=== PATIENT | male | born 1950 | race Asian ===

== ENCOUNTER 2021-04-24 07:15 | Inpatient (IN) | payer MEDICARE, MEDICAID ==
[~2021-04-24] VITALS: Ht 170.2 cm; Wt 90.3 kg
--- NOTE | 2021-04-24 10:53 | NUR ---
called the phone no listed on the pt demographic data ,left message ,still waiting for the translation,notified vandana hunter.
--- NOTE | 2021-04-24 11:00 | NUR ---
spoke to pt son and stated that his younger brother is coming to the er for translation,lab at bedside ,pt asking for water ,informed he has to stay npo as we may have to run few test,pt verbalized understanding ,pt able to understand little bit of arabic.
[2021-04-24] MEDS ORDERED: normal saline 1000ML IV soln IVB ONE ×2 (11:05→11:40)
[2021-04-24 11:24] LABS: BASOPHILS % (AUTO) 0.3 % (0-1); EOSINOPHILS % (AUTO) 0.1 % (0-6); HEMATOCRIT 36.5 % (42.0-52.0); HEMOGLOBIN 11.9 g/dl (14.0-17.9); LYMPHOCYTES # (AUTO) 2.4 X10'3 (1.1-4.8); MEAN CORPUSCULAR HEMOGLOBIN 30.5 PG (27.0-31.0); MEAN CORPUSCULAR HGB CONC 32.6 g/dL (33.0-36.5); MEAN CORPUSCULAR VOLUME 93.5 FL (78-98); MEAN PLATELET VOLUME 8.7 FL (7.4-10.4); MONOCYTES # (AUTO) 0.5 X10'3 (0-0.9); MONOCYTES % (AUTO) 3.7 % (2-12); NEUTROPHILS % (AUTO) 78.9 % (42-75); PLATELET COUNT 231 X10'3 (140-440); RED CELL DISTRIBUTION WIDTH 15.1 % (11.5-14.5); WHITE BLOOD COUNT 13.9 X10'3 (4.5-11.0)
--- NOTE | 2021-04-24 11:30 | NUR ---
ciara hunter pt is tahypneic ,seems to be in lot of pain .does not look okay as per pa he will reassess the pt .
--- NOTE | 2021-04-24 11:45 | NUR ---
spoke to pt granddaughter able to get some information informe dthat pt has ate wild bittermelon and since then he is c/o cramping abd pain with diarrhea.
[2021-04-24 11:49] LABS: ALANINE AMINOTRANSFERASE 25 U/L (12-78); ALBUMIN 3.1 G/DL (3.4-5.0); ALBUMIN/GLOBULIN RATIO 0.9 (1.1-1.5); ALKALINE PHOSPHATASE 93 IU/L (46-116); ANION GAP 26 (8-16); ASPARTATE AMINO TRANSFERASE 20 U/L (10-37); BILIRUBIN,TOTAL 0.5 MG/DL (0.1-1.0); BLOOD UREA NITROGEN 81 MG/DL (7-18); CALCIUM 8.2 MG/DL (8.5-10.1); CHLORIDE 103 MMOL/L (99-107); CREATININE 2.25 MG/DL (0.60-1.10); GLUCOSE 241 MG/DL (70-104); LIPASE 98 U/L (73-393); SODIUM 142 MMOL/L (135-145); TOTAL PROTEIN 6.6 G/DL (6.4-8.2); eGFR 29 ML/MIN
[2021-04-24 11:50] LABS: POTASSIUM 4.2 MMOL/L (3.5-5.1)
--- NOTE | 2021-04-24 11:52 | NUR ---
pt has unwitness ground level fall ,pt clenched up arms stiff for few second ,no injuries noted notified the vandana hunter.
[2021-04-24 11:53] LABS: TOTAL CARBON DIOXIDE 13.5 MMOL/L (24-32)
[2021-04-24] MEDS ORDERED: fentaNYL/PF 50MCG/1 ML 2ML syringe IV ONE ×2 (11:55→12:50)
--- NOTE | 2021-04-24 12:13 | NUR ---
grand daughter ,provider and zahraa speaking medical personal at bedside.lab drawing blood .
--- NOTE | 2021-04-24 12:34 | NUR ---
called posion control at [phone] spoke to jakub informed that pt has taken simona plant as told by son at the bedside as per posion control simona does not contain any toxin josemanuel do supportive care ,pt will have gi irritation symp. previously pt granddaughter stated that pt has taken wild bittermelon and spoke to jakub from position control as per jakub pt will have gi symp abd pain n/v/d ,hpypoglycemia .pt then informed that pt son is here and said he ingested simona instead of wild bitter melon .
[2021-04-24] MEDS ORDERED: piperacillin/tazo 3.375gm/50ml 50 ML IV ONE (13:15)
[2021-04-24] MEDS ORDERED: vancomycin/NS 1 GM ADD-VANTAGE 250 ML IV ONE (13:15)
[2021-04-24 13:17] LABS: ABG BASE EXCESS -19.5 mmol/L (-2.0-2.0); ABG HCO3 7.5 mmol/L (22.0-26.0); ABG OXYGEN SATURATION 95.1 % (94-97); ABG PCO2 (T) 21.1 mmHg (35.0-48.0); ABG PO2 (T) 93.6 mmHg (75.0-100.0); ALLEN'S TEST POSITIVE; FCOHb 0.3 % (0.0-3.9); FMetHb 0.2 % (0.0-1.5); FO2Hb 94.6 % (94-97); PATIENT TEMPERATURE 36.4; TOTAL HEMOGLOBIN 10.8 G/dl (14.0-18.0)
--- NOTE | 2021-04-24 13:40 | NUR ---
grand daughter [phone] abundio. frantz son [phone] call for ques or concern.
[2021-04-24] MEDS: sodium chloride 0.45% 1,000 ML IV SCH ×5 (14:40→23:17)
[2021-04-24] MEDS ORDERED: pantoprazole 40 MG vial IV SCH (14:40)
[2021-04-24] MEDS ORDERED: magnesium hydroxide 30ml (MOM) UD suspension PO PRN (14:40)
[2021-04-24] MEDS ORDERED: iohexol 350MG/ML 100ml bottle IV ONE (14:42)
[2021-04-24 16:38] LABS: AMYLASE 35 U/L (25-115); PHOSPHORUS 8.4 MG/DL (2.3-4.5)
[2021-04-24] MEDS ORDERED: NO HOME MEDS (16:47)
--- NOTE | 2021-04-24 17:00 | NUR ---
dr alvarado at bedside.
[2021-04-24] MEDS: metroNIDAZOLE-Flagyl 500mg/NS 100 ML IV SCH ×2 (17:09→23:17)
--- NOTE | 2021-04-24 17:37 | NUR ---
Patient in room ED 16. I have received report from MOHSEN WINSTON, and had the opportunity to ask questions and assume patient care.
[2021-04-24 17:57] LABS: ALANINE AMINOTRANSFERASE 25 U/L (12-78); ALBUMIN 2.7 G/DL (3.4-5.0); ALKALINE PHOSPHATASE 84 IU/L (46-116); ANION GAP 23 (8-16); ASPARTATE AMINO TRANSFERASE 26 U/L (10-37); BILIRUBIN,TOTAL 0.6 MG/DL (0.1-1.0); BLOOD UREA NITROGEN 85 MG/DL (7-18); BUN/CREATININE RATIO 31.8 (5.4-32.0); CALCIUM 7.3 MG/DL (8.5-10.1); CHLORIDE 108 MMOL/L (99-107); CREATINE KINASE 127 U/L (39-308); CREATININE 2.67 MG/DL (0.60-1.10); GLUCOSE 143 MG/DL (70-104); POTASSIUM 4.3 MMOL/L (3.5-5.1); SODIUM 144 MMOL/L (135-145); TOTAL PROTEIN 5.5 G/DL (6.4-8.2); eGFR 24 ML/MIN
[2021-04-24 18:03] LABS: TOTAL CARBON DIOXIDE 13.5 MMOL/L (24-32)
[2021-04-24] MEDS ORDERED: sodium bicarbonate (8.4%) inj. 50 MEQ in dextrose 5%-water 1,000 ML IV SCH (18:20)
[2021-04-24 18:30] LABS: D-DIMER 1.79 MG/L FEU (0-0.50)
[2021-04-24] MEDS: piperacillin/tazo 3.375gm/50ml 50 ML IV SCH ×2 (18:35→23:18)
--- NOTE | 2021-04-24 18:47 | NUR ---
md MEJIA notified of critical co2 13.5 order for bicarb 1 amp now and bicarbonate gtt.
--- NOTE | 2021-04-24 18:47 | NUR ---
Problems reprioritized. Patient report given, questions answered & plan of care reviewed with MOHSEN FABIAN.
[2021-04-24 19:13] VITALS: BP 123/71
[2021-04-24] MEDS: sodium bicarbonate (8.4%) inj. 150 MEQ in dextrose 5%-water 1,000 ML IV SCH ×2 (19:15→19:42)
[2021-04-24 20:00] VITALS: BP 123/71
[2021-04-24] MEDS ORDERED: heparin, porcine 5000 units/ml vial SQ SCH (20:00)
--- NOTE | 2021-04-24 20:00 | NUR ---
Md Ness tele med consult with pt ordered bipap Rt placed pt on bipap for 2 minuted pt refused, patient complained of pain Md ordered pain medication, ABG rescheduled to hr after receiving bicarb amp.
[2021-04-24] MEDS ORDERED: sodium bicarbonate (8.4%) 1 mEq/ml syringe IV STA (20:11)
[2021-04-24 21:00] VITALS: BP 128/60
--- NOTE | 2021-04-24 21:07 | NUR ---
Patient wore bipap for about 2 minutes and then removed the mask. Unit placed on standby Addendum: 04/24/21 at 2114 by Rodrick Galvan RT Amended: Links added.
[2021-04-24] MEDS: morphine 2 MG/ML inj. syringe IV PRN (21:32)
[2021-04-24 22:00] VITALS: BP 115/47
[2021-04-24 22:25] LABS: ABG BASE EXCESS -8.6 mmol/L (-2.0-2.0); ABG HCO3 15.5 mmol/L (22.0-26.0); ABG OXYGEN SATURATION 96.3 % (94-97); ABG PCO2 (T) 26.4 mmHg (35.0-48.0); ALLEN'S TEST POSITIVE; FCOHb 0.3 % (0.0-3.9); FLOW 1 L/min; FMetHb 0.1 % (0.0-1.5); FO2Hb 95.9 % (94-97); PATIENT TEMPERATURE 36.3
[2021-04-24 23:00] VITALS: BP 110/48
[2021-04-25] VITALS (39 sets, daily range): BP systolic 103–167; BP diastolic 42–82
--- NOTE | 2021-04-25 00:31 | NUR ---
Md called about ABG results and notified of pt having blood stools, MD decreased bicarb Gtt to 50 ml/hr. will reassess H7H in morning labs
--- NOTE | 2021-04-25 00:33 | NUR ---
notified of pts refusal of bipap no new changes or orders will continue to monitor
[2021-04-25] MEDS: vancomycin 125mg/5ml ORAL solution 5ml UD bottle PO SCH ×2 (01:38→08:34)
[2021-04-25] MEDS: morphine 2 MG/ML inj. syringe IV PRN ×4 (01:39→23:56)
[2021-04-25] MEDS: sodium chloride 0.45% 1,000 ML IV SCH ×3 (03:11→10:02)
[2021-04-25 03:22] LABS: BASOPHILS % (AUTO) 0.1 % (0-1); EOSINOPHILS % (AUTO) 0 % (0-6); HEMATOCRIT 24.1 % (42.0-52.0); HEMOGLOBIN 8.2 g/dl (14.0-17.9); LYMPHOCYTES # (AUTO) 1.5 X10'3 (1.1-4.8); MEAN CORPUSCULAR HEMOGLOBIN 30.5 PG (27.0-31.0); MEAN CORPUSCULAR VOLUME 89.5 FL (78-98); MEAN PLATELET VOLUME 9.1 FL (7.4-10.4); MONOCYTES # (AUTO) 0.9 X10'3 (0-0.9); MONOCYTES % (AUTO) 9.5 % (2-12); NEUTROPHILS # (AUTO) 7.1 X10'3 (1.8-7.7); NEUTROPHILS % (AUTO) 74.4 % (42-75); PLATELET COUNT 132 X10'3 (140-440); RED BLOOD COUNT 2.69 X10'6 (4.70-6.10); RED CELL DISTRIBUTION WIDTH 14.8 % (11.5-14.5); WHITE BLOOD COUNT 9.6 X10'3 (4.5-11.0)
[2021-04-25 03:37] LABS: PARTIAL THROMBOPLASTIN TIME 29 SECONDS (22-32)
--- NOTE | 2021-04-25 04:00 | NUR ---
Md did morning rounds notified of bloody stool and H&H lab values decreasing and lactic acid remaining the same. No new orders at this time ill continue to monitor recheck labs
[2021-04-25 04:01] LABS: ALANINE AMINOTRANSFERASE 22 U/L (12-78); ALBUMIN 2.5 G/DL (3.4-5.0); ALBUMIN/GLOBULIN RATIO 0.9 (1.1-1.5); ALKALINE PHOSPHATASE 70 IU/L (46-116); ANION GAP 18 (8-16); ASPARTATE AMINO TRANSFERASE 28 U/L (10-37); BILIRUBIN,TOTAL 0.7 MG/DL (0.1-1.0); BLOOD UREA NITROGEN 78 MG/DL (7-18); BUN/CREATININE RATIO 34.1 (5.4-32.0); CALCIUM 7.2 MG/DL (8.5-10.1); CHLORIDE 104 MMOL/L (99-107); CREATININE 2.29 MG/DL (0.60-1.10); GLUCOSE 152 MG/DL (70-104); MAGNESIUM 1.7 MG/DL (1.5-2.4); PHOSPHORUS 4.6 MG/DL (2.3-4.5); POTASSIUM 3.6 MMOL/L (3.5-5.1); SODIUM 140 MMOL/L (135-145); TOTAL CARBON DIOXIDE 17.6 MMOL/L (24-32); TOTAL PROTEIN 5.2 G/DL (6.4-8.2); eGFR 28 ML/MIN
[2021-04-25 04:23] LABS: BANDS% (MANUAL) 23 % (0-10); LYMPHOCYTES % (MANUAL) 19 % (21-51); METAMYLEOCYTES% (MANUAL) 6 % (0-0); MONOCYTES % (MANUAL) 5 % (2-12); NEUTROPHILS % (MANUAL) 45 % (42-75); TOTAL CELLS COUNTED 100
[2021-04-25 04:24] LABS: MYELOCYTES % (MANUAL) 2 % (0-0); PLATELET ESTIMATE DECREASED
--- NOTE | 2021-04-25 05:36 | NUR ---
would like to hold heparin SQ for low H&H and bloody stools
--- NOTE | 2021-04-25 06:00 | NUR ---
Patient in room ICU 2044. I have received report from ENDER CONNOLLY and had the opportunity to ask questions and assume patient care.
--- NOTE | 2021-04-25 06:20 | NUR ---
Problems reprioritized. Patient report given, questions answered & plan of care reviewed with MOHSEN Mcmullen.
[2021-04-25] MEDS: pantoprazole 40MG/NS 100ML BAG 100 ML IV SCH ×4 (07:09→20:37)
[2021-04-25] MEDS: metroNIDAZOLE-Flagyl 500mg/NS 100 ML IV SCH ×3 (08:35→23:04)
[2021-04-25] MEDS: piperacillin/tazo 3.375gm/50ml 50 ML IV SCH (08:35)
[2021-04-25 08:51] LABS: CLARITY,URINE CLOUDY (Clear); COLOR,URINE YELLOW (Yellow); GLUCOSE, URINE NEGATIVE (Neg); KETONES,URINE NEGATIVE (Neg); LEUKOCYTE ESTERASE ,URINE NEGATIVE (Neg); NITRITES, URINE NEGATIVE (Neg); OCCULT BLOOD,URINE MODERATE (Neg); PH,URINE 5.5 (4.8-8.0); PROTEIN,URINE TRACE mg/dl (Neg); UROBILINOGEN,URINE 0.2 E.U/dL (0.2-1.0)
[2021-04-25 08:52] LABS: UA COLLECTION TYPE CLN CATCH MIDSTREAM
[2021-04-25 08:55] LABS: SQUAMOUS EPITHELIAL CELL,UR FEW /LPF (FEW)
[2021-04-25 08:59] LABS: BACTERIA,URINE FEW /HPF (Neg); URIC ACID CRYSTALS 2+ /HPF (NEGATIVE); WBC,URINE 0-4 /HPF (0-4)
--- NOTE | 2021-04-25 11:02 | NUR ---
DM Consult: Pt hx DM A1C pending this admit. Pt admit w/ suspected infectious enterocolitis. Per son at rounds; pt and family consumed Man[place] (PassHat) found on [facility] which is toxic and inedible though and other son's diarrhea not as bad as patient's. Addendum: 04/25/21 at [address] Amended: Links added.
[2021-04-25] MEDS: [UNRECOGNIZED DRUG - OTHER] IV SCH ×2 (11:20→22:10)
[2021-04-25] MEDS: SODIUM BICARBONATE IV SCH ×2 (11:20→22:10)
[2021-04-25] MEDS: POTASSIUM CL IV SCH ×2 (11:20→22:10)
[2021-04-25 12:35] LABS: BASOPHILS % (AUTO) 0.1 % (0-1); EOSINOPHILS % (AUTO) 0 % (0-6); HEMOGLOBIN 7.5 g/dl (14.0-17.9); LYMPHOCYTES # (AUTO) 1.2 X10'3 (1.1-4.8); LYMPHOCYTES % (AUTO) 12.9 % (21-51); MEAN CORPUSCULAR HEMOGLOBIN 30.8 PG (27.0-31.0); MONOCYTES # (AUTO) 0.8 X10'3 (0-0.9); MONOCYTES % (AUTO) 8.8 % (2-12); NEUTROPHILS # (AUTO) 7.2 X10'3 (1.8-7.7); NEUTROPHILS % (AUTO) 78.2 % (42-75); PLATELET COUNT 120 X10'3 (140-440); RED BLOOD COUNT 2.42 X10'6 (4.70-6.10); RED CELL DISTRIBUTION WIDTH 14.3 % (11.5-14.5); WHITE BLOOD COUNT 9.2 X10'3 (4.5-11.0)
[2021-04-25] MEDS: ciprofloxacin 250mg tablet PO SCH ×2 (12:40→20:37)
[2021-04-25 12:55] LABS: HEMATOCRIT 21.3 % (42.0-52.0)
--- NOTE | 2021-04-25 15:28 | NUR ---
F/u for DM consult: Patient's A1c is 5.6%, DM education not warranted at this time. Will continue to follow. Addendum: 04/25/21 at [address] Amended: Links added.
--- NOTE | 2021-04-25 16:28 | NUR ---
PATIENT REFUSING BLOOD AT THIS POINT DUE TO LATTER DAY BELIEFS
[2021-04-25 17:30] LABS: HEMOGLOBIN 7.4 g/dl (14.0-17.9); MEAN CORPUSCULAR HEMOGLOBIN 31.3 PG (27.0-31.0); MEAN CORPUSCULAR HGB CONC 35.1 g/dL (33.0-36.5); MEAN CORPUSCULAR VOLUME 89.3 FL (78-98); MEAN PLATELET VOLUME 9.2 FL (7.4-10.4); PLATELET COUNT 123 X10'3 (140-440); RED BLOOD COUNT 2.36 X10'6 (4.70-6.10); RED CELL DISTRIBUTION WIDTH 14.4 % (11.5-14.5); WHITE BLOOD COUNT 8.4 X10'3 (4.5-11.0)
--- NOTE | 2021-04-25 18:00 | NUR ---
Family at bedside pt and family consented to receiving blood explained we will recheck and if lab values are low pt may need another transfusion family and pt agreed and signed consent
--- NOTE | 2021-04-25 18:12 | NUR ---
Patient in room ICU 2044. I have received report from MOHSEN Penaloza and had the opportunity to ask questions and assume patient care.
[2021-04-25] MEDS: lactobacillus rhamnosus 10,000 MMU CELLS/CAPSULE PO SCH (20:37)
[2021-04-25] MEDS ORDERED: PEG 3350/Na sulf,bicarb,Cl/KCl oral sol 4 liter bottle PO ONE (22:05)
--- NOTE | 2021-04-25 22:10 | NUR ---
Called [employer] tech due to Us of abd not completed during day shift, Us tech stated pt needed to be NPO pt is receiving bowel prep at this time and US will be performed at 0600 am 04/26/2021.
[2021-04-25 22:38] LABS: MEAN CORPUSCULAR HEMOGLOBIN 30.2 PG (27.0-31.0); MEAN CORPUSCULAR HGB CONC 34.9 g/dL (33.0-36.5); MEAN CORPUSCULAR VOLUME 86.7 FL (78-98); MEAN PLATELET VOLUME 8.6 FL (7.4-10.4); PLATELET COUNT 113 X10'3 (140-440); RED BLOOD COUNT 2.65 X10'6 (4.70-6.10); RED CELL DISTRIBUTION WIDTH 14.3 % (11.5-14.5); WHITE BLOOD COUNT 7.2 X10'3 (4.5-11.0)
[2021-04-26] VITALS (39 sets, daily range): BP systolic 111–189; BP diastolic 37–97
[2021-04-26] MEDS: pantoprazole 40MG/NS 100ML BAG 100 ML IV SCH ×5 (00:06→20:23)
[2021-04-26 02:48] LABS: BASOPHILS % (AUTO) 0.2 % (0-1); EOSINOPHILS % (AUTO) 0.1 % (0-6); HEMOGLOBIN 7.6 g/dl (14.0-17.9); LYMPHOCYTES # (AUTO) 1.1 X10'3 (1.1-4.8); LYMPHOCYTES % (AUTO) 17.2 % (21-51); MEAN CORPUSCULAR HEMOGLOBIN 30.1 PG (27.0-31.0); MEAN CORPUSCULAR HGB CONC 34.8 g/dL (33.0-36.5); MEAN CORPUSCULAR VOLUME 86.5 FL (78-98); MEAN PLATELET VOLUME 8.7 FL (7.4-10.4); MONOCYTES # (AUTO) 0.5 X10'3 (0-0.9); MONOCYTES % (AUTO) 7.5 % (2-12); NEUTROPHILS # (AUTO) 4.9 X10'3 (1.8-7.7); PLATELET COUNT 107 X10'3 (140-440); RED BLOOD COUNT 2.53 X10'6 (4.70-6.10); RED CELL DISTRIBUTION WIDTH 14.8 % (11.5-14.5); WHITE BLOOD COUNT 6.5 X10'3 (4.5-11.0)
[2021-04-26 03:01] LABS: HEMATOCRIT 21.9 % (42.0-52.0)
[2021-04-26 03:03] LABS: PARTIAL THROMBOPLASTIN TIME 38 SECONDS (22-32)
--- NOTE | 2021-04-26 03:07 | NUR ---
MD Arriaga notified of critical HG 7.6 and HCT 21.9 telephone order to give one unit packed rbc and repeat H&H.
[2021-04-26 03:17] LABS: ALANINE AMINOTRANSFERASE 18 U/L (12-78); ALBUMIN 2.1 G/DL (3.4-5.0); ALBUMIN/GLOBULIN RATIO 0.7 (1.1-1.5); ALKALINE PHOSPHATASE 54 IU/L (46-116); ANION GAP 8 (8-16); ASPARTATE AMINO TRANSFERASE 27 U/L (10-37); BILIRUBIN,TOTAL 0.8 MG/DL (0.1-1.0); BLOOD UREA NITROGEN 25 MG/DL (7-18); BUN/CREATININE RATIO 29.1 (5.4-32.0); CALCIUM 7.3 MG/DL (8.5-10.1); CHLORIDE 109 MMOL/L (99-107); CREATININE 0.86 MG/DL (0.60-1.10); GLUCOSE 123 MG/DL (70-104); PHOSPHORUS 1.6 MG/DL (2.3-4.5); POTASSIUM 3.6 MMOL/L (3.5-5.1); SODIUM 143 MMOL/L (135-145); TOTAL CARBON DIOXIDE 26.2 MMOL/L (24-32); TOTAL PROTEIN 5.1 G/DL (6.4-8.2); eGFR 88 ML/MIN
[2021-04-26] MEDS ORDERED: calcium chloride 100 MG/1 ML inj IV ONE (05:10)
[2021-04-26] MEDS ORDERED: potassium phosphate inj 30 MMOL in normal saline 500ml IV soln 500 ML IV ONE (05:10)
--- NOTE | 2021-04-26 06:31 | NUR ---
Problems reprioritized. Patient report given, questions answered & plan of care reviewed with MOHSEN Lofton.
--- NOTE | 2021-04-26 06:32 | NUR ---
Patient in room ICU 2044. I have received report from MOHSEN Paredes and had the opportunity to ask questions and assume patient care.
[2021-04-26] MEDS: metroNIDAZOLE-Flagyl 500mg/NS 100 ML IV SCH (07:26)
[2021-04-26] MEDS: lactobacillus rhamnosus 10,000 MMU CELLS/CAPSULE PO SCH ×2 (07:28→20:22)
[2021-04-26] MEDS: ciprofloxacin 250mg tablet PO SCH ×3 (07:28→20:22)
[2021-04-26] MEDS: SODIUM BICARBONATE IV SCH (08:44)
[2021-04-26] MEDS: POTASSIUM CL IV SCH (08:44)
[2021-04-26] MEDS: [UNRECOGNIZED DRUG - OTHER] IV SCH (08:44)
[2021-04-26 09:14] LABS: C DIFF ANTIGEN NEGATIVE (NEGATIVE); C DIFF SPECIMEN=DIARRHEA? ACCEPTABLE; C DIFFICILE TOXINS A&B NEGATIVE (Neg)
--- NOTE | 2021-04-26 14:09 | NUR ---
Daughter at beside and able to translate for nurse states pt is depressed c/o of sl abd pain and no appetite" States golyty made him sick 1 unit of PRBC started as ordered VSS Sl htn Daughter states pt does not take any med
[2021-04-26] MEDS ORDERED: labetalol 100mg tablet PO PRN (14:20)
[2021-04-26] MEDS ORDERED: ondansetron/PF 4mg/2ml inj IV PRN (14:35)
--- NOTE | 2021-04-26 15:07 | NUR ---
pt zoya blood transfusion without signs of symptoms of reaction [employer] Researcher phone used to explain to pt giving pt something for nausea and some antibiotics Explained need to get golyty down so they could do scope in morning Pt had no questions VSS
[2021-04-26] MEDS: metroNIDAZOLE 500mg tablet PO SCH ×2 (15:10→17:30)
[2021-04-26 18:17] LABS: HEMATOCRIT 26.9 % (42.0-52.0); HEMOGLOBIN 9.2 g/dl (14.0-17.9); MEAN CORPUSCULAR HEMOGLOBIN 30.2 PG (27.0-31.0); MEAN CORPUSCULAR HGB CONC 34.4 g/dL (33.0-36.5); MEAN CORPUSCULAR VOLUME 87.8 FL (78-98); MEAN PLATELET VOLUME 8.8 FL (7.4-10.4); PLATELET COUNT 105 X10'3 (140-440); RED BLOOD COUNT 3.06 X10'6 (4.70-6.10); WHITE BLOOD COUNT 6.6 X10'3 (4.5-11.0)
--- NOTE | 2021-04-26 18:27 | NUR ---
Patient in room ICU 2044. I have received report from MOHSEN Lofton and had the opportunity to ask questions and assume patient care.
--- NOTE | 2021-04-26 18:30 | NUR ---
Problems reprioritized. Patient report given, questions answered & plan of care reviewed with MOHSEN Ellis.
[2021-04-26 23:55] LABS: HEMOGLOBIN 9.5 g/dl (14.0-17.9); MEAN CORPUSCULAR HEMOGLOBIN 29.8 PG (27.0-31.0); MEAN CORPUSCULAR HGB CONC 34.1 g/dL (33.0-36.5); MEAN CORPUSCULAR VOLUME 87.4 FL (78-98); MEAN PLATELET VOLUME 8.3 FL (7.4-10.4); PLATELET COUNT 113 X10'3 (140-440); RED BLOOD COUNT 3.21 X10'6 (4.70-6.10); RED CELL DISTRIBUTION WIDTH 15.2 % (11.5-14.5); WHITE BLOOD COUNT 7.1 X10'3 (4.5-11.0)
[2021-04-27] VITALS (23 sets, daily range): BP systolic 131–188; BP diastolic 43–86
[2021-04-27] MEDS: pantoprazole 40MG/NS 100ML BAG 100 ML IV SCH ×5 (02:06→20:31)
[2021-04-27 06:10] LABS: BASOPHILS % (AUTO) 0.3 % (0-1); EOSINOPHILS % (AUTO) 0.3 % (0-6); HEMATOCRIT 25.8 % (42.0-52.0); HEMOGLOBIN 8.9 g/dl (14.0-17.9); LYMPHOCYTES # (AUTO) 1.4 X10'3 (1.1-4.8); LYMPHOCYTES % (AUTO) 21.5 % (21-51); MEAN CORPUSCULAR HEMOGLOBIN 29.9 PG (27.0-31.0); MEAN CORPUSCULAR HGB CONC 34.4 g/dL (33.0-36.5); MEAN CORPUSCULAR VOLUME 86.7 FL (78-98); MEAN PLATELET VOLUME 8.5 FL (7.4-10.4); MONOCYTES # (AUTO) 0.5 X10'3 (0-0.9); MONOCYTES % (AUTO) 7.9 % (2-12); NEUTROPHILS # (AUTO) 4.6 X10'3 (1.8-7.7); PLATELET COUNT 110 X10'3 (140-440); RED BLOOD COUNT 2.98 X10'6 (4.70-6.10); RED CELL DISTRIBUTION WIDTH 15.8 % (11.5-14.5); WHITE BLOOD COUNT 6.5 X10'3 (4.5-11.0)
[2021-04-27 06:22] LABS: PARTIAL THROMBOPLASTIN TIME 32 SECONDS (22-32)
--- NOTE | 2021-04-27 06:29 | NUR ---
Patient in room ICU 2044. I have received report from Rhonda CONNOLLY at bedside and had the opportunity to ask questions and assume patient care.
--- NOTE | 2021-04-27 06:31 | NUR ---
Problems reprioritized. Patient report given, questions answered & plan of care reviewed with MOHSEN Carlos.
[2021-04-27 06:35] LABS: ALANINE AMINOTRANSFERASE 24 U/L (12-78); ALBUMIN 2.1 G/DL (3.4-5.0); ALBUMIN/GLOBULIN RATIO 0.7 (1.1-1.5); ALKALINE PHOSPHATASE 86 IU/L (46-116); ANION GAP 7 (8-16); ASPARTATE AMINO TRANSFERASE 27 U/L (10-37); BILIRUBIN,TOTAL 0.6 MG/DL (0.1-1.0); BLOOD UREA NITROGEN 17 MG/DL (7-18); BUN/CREATININE RATIO 21.3 (5.4-32.0); CALCIUM 7.7 MG/DL (8.5-10.1); CHLORIDE 113 MMOL/L (99-107); GLUCOSE 94 MG/DL (70-104); PHOSPHORUS 2.8 MG/DL (2.3-4.5); POTASSIUM 3.2 MMOL/L (3.5-5.1); SODIUM 147 MMOL/L (135-145); TOTAL CARBON DIOXIDE 27.2 MMOL/L (24-32); TOTAL PROTEIN 5.2 G/DL (6.4-8.2); eGFR > 90 ML/MIN
[2021-04-27] MEDS: metroNIDAZOLE 500mg tablet PO SCH ×3 (07:12→17:20)
[2021-04-27] MEDS: lactobacillus rhamnosus 10,000 MMU CELLS/CAPSULE PO SCH ×2 (07:12→20:31)
[2021-04-27] MEDS: ciprofloxacin 250mg tablet PO SCH ×3 (07:12→20:31)
[2021-04-27] MEDS ORDERED: labetalol 20mg/4ml (5mg/ml) syringe IV PRN (08:20)
--- NOTE | 2021-04-27 08:20 | NUR ---
spoke with Dr. Torres on the phone regarding B/P 188/ currently NPO for EGD and colonoscopy with Dr. Zarco this morning, currently has Labetalol 100mg po medication order to give with meals. Dr. Torres gave order for Labetalol 20mg IV [id number] for SBP >160.
[2021-04-27] MEDS ORDERED: MIDAZolam 1 MG/ML 5ML VIAL ONE (08:25)
[2021-04-27] MEDS ORDERED: fentaNYL/PF 50MCG/1 ML 2ML syringe ONE (08:25)
[2021-04-27] MEDS ORDERED: LIDOcaine Viscous 15ml cup ONE (08:26)
[2021-04-27] MEDS ORDERED: potassium Cl 20 mEq SR tablet PO PRN (11:35)
[2021-04-27] MEDS: K, MAG and/or Phos replacement - Verify level? MC SCH (11:36)
[2021-04-27] MEDS: potassium Cl 20 mEq SR tablet PO PRN ×3 (12:37→21:20)
[2021-04-27] MEDS: morphine 2 MG/ML inj. syringe IV PRN ×2 (12:38→20:32)
[2021-04-27 15:31] LABS: HEMATOCRIT 26.7 % (42.0-52.0); HEMOGLOBIN 9.1 g/dl (14.0-17.9); MEAN CORPUSCULAR HEMOGLOBIN 29.6 PG (27.0-31.0); MEAN CORPUSCULAR VOLUME 87.1 FL (78-98); MEAN PLATELET VOLUME 8.9 FL (7.4-10.4); PLATELET COUNT 120 X10'3 (140-440); RED BLOOD COUNT 3.07 X10'6 (4.70-6.10); RED CELL DISTRIBUTION WIDTH 15.1 % (11.5-14.5); WHITE BLOOD COUNT 7.1 X10'3 (4.5-11.0)
--- NOTE | 2021-04-27 16:30 | NUR ---
Called Surgical to give report and was unable to take report. Nurse will call back when able to take patient
--- NOTE | 2021-04-27 17:35 | NUR ---
Called to give report to Ivania Stewart RN, on Surgical, currently unavailable and will call back to receive report.
--- NOTE | 2021-04-27 17:42 | NUR ---
Problems reprioritized. Patient report given, questions answered & plan of care reviewed with Shalonda CONNOLLY .
--- NOTE | 2021-04-27 17:47 | NUR ---
I have received report from MOHSEN Carlos and had the opportunity to ask questions and assume patient care.
--- NOTE | 2021-04-27 17:55 | NUR ---
Pt arrived to surgical floor via wheelchair
--- NOTE | 2021-04-27 18:33 | NUR ---
Problems reprioritized. Patient report given, questions answered & plan of care reviewed with MOHSEN Puckett.
[2021-04-27 23:55] LABS: HEMATOCRIT 28.4 % (42.0-52.0); HEMOGLOBIN 9.6 g/dl (14.0-17.9); MEAN CORPUSCULAR HEMOGLOBIN 29.9 PG (27.0-31.0); MEAN CORPUSCULAR HGB CONC 33.8 g/dL (33.0-36.5); MEAN CORPUSCULAR VOLUME 88.6 FL (78-98); MEAN PLATELET VOLUME 8.3 FL (7.4-10.4); PLATELET COUNT 130 X10'3 (140-440); RED CELL DISTRIBUTION WIDTH 15.1 % (11.5-14.5); WHITE BLOOD COUNT 6.8 X10'3 (4.5-11.0)
[2021-04-28 00:19] VITALS: BP 159/68
[2021-04-28] MEDS: morphine 2 MG/ML inj. syringe IV PRN ×3 (00:45→09:06)
[2021-04-28] MEDS: pantoprazole 40MG/NS 100ML BAG 100 ML IV SCH ×4 (01:35→17:07)
[2021-04-28 06:26] LABS: PARTIAL THROMBOPLASTIN TIME 30 SECONDS (22-32)
[2021-04-28 06:30] VITALS: BP 154/75
[2021-04-28 06:31] LABS: BASOPHILS % (AUTO) 0.3 % (0-1); EOSINOPHILS % (AUTO) 0.5 % (0-6); HEMATOCRIT 28.5 % (42.0-52.0); HEMOGLOBIN 9.8 g/dl (14.0-17.9); LYMPHOCYTES # (AUTO) 1.5 X10'3 (1.1-4.8); LYMPHOCYTES % (AUTO) 20.7 % (21-51); MEAN CORPUSCULAR HEMOGLOBIN 30.1 PG (27.0-31.0); MEAN CORPUSCULAR HGB CONC 34.4 g/dL (33.0-36.5); MEAN CORPUSCULAR VOLUME 87.4 FL (78-98); MEAN PLATELET VOLUME 8.1 FL (7.4-10.4); MONOCYTES # (AUTO) 0.7 X10'3 (0-0.9); MONOCYTES % (AUTO) 9.4 % (2-12); NEUTROPHILS # (AUTO) 5.1 X10'3 (1.8-7.7); NEUTROPHILS % (AUTO) 69.1 % (42-75); PLATELET COUNT 135 X10'3 (140-440); RED BLOOD COUNT 3.26 X10'6 (4.70-6.10); RED CELL DISTRIBUTION WIDTH 15.1 % (11.5-14.5); WHITE BLOOD COUNT 7.4 X10'3 (4.5-11.0)
[2021-04-28 06:34] LABS: ALANINE AMINOTRANSFERASE 20 U/L (12-78); ALBUMIN 2.2 G/DL (3.4-5.0); ALBUMIN/GLOBULIN RATIO 0.8 (1.1-1.5); ALKALINE PHOSPHATASE 57 IU/L (46-116); ANION GAP 6 (8-16); ASPARTATE AMINO TRANSFERASE 20 U/L (10-37); BILIRUBIN,TOTAL 0.5 MG/DL (0.1-1.0); BLOOD UREA NITROGEN 11 MG/DL (7-18); BUN/CREATININE RATIO 13.8 (5.4-32.0); CALCIUM 7.6 MG/DL (8.5-10.1); CHLORIDE 112 MMOL/L (99-107); GLUCOSE 93 MG/DL (70-104); MAGNESIUM 1.9 MG/DL (1.5-2.4); PHOSPHORUS 3.5 MG/DL (2.3-4.5); POTASSIUM 3.3 MMOL/L (3.5-5.1); SODIUM 145 MMOL/L (135-145); TOTAL CARBON DIOXIDE 26.7 MMOL/L (24-32); TOTAL PROTEIN 5.1 G/DL (6.4-8.2); eGFR > 90 ML/MIN
--- NOTE | 2021-04-28 06:40 | NUR ---
Patient in room PRAB[facility] 354. I have received report from MOHSEN Puckett and had the opportunity to ask questions and assume patient care.
[2021-04-28 07:26] LABS: PLATELET ESTIMATE DECREASED; POLYCHROMASIA 1+
[2021-04-28 07:27] LABS: ANISOCYTOSIS 1+
--- NOTE | 2021-04-28 07:42 | NUR ---
Problems reprioritized. Patient report given, questions answered & plan of care reviewed with Bronwyn RN.
[2021-04-28] MEDS: K, MAG and/or Phos replacement - Verify level? MC SCH (07:53)
[2021-04-28] MEDS: metroNIDAZOLE 500mg tablet PO SCH ×3 (09:05→17:07)
[2021-04-28] MEDS: ciprofloxacin 250mg tablet PO SCH ×3 (09:05→20:33)
[2021-04-28] MEDS: lactobacillus rhamnosus 10,000 MMU CELLS/CAPSULE PO SCH ×2 (09:05→20:32)
[2021-04-28] MEDS: potassium Cl 20 mEq SR tablet PO PRN ×3 (09:14→17:07)
--- NOTE | 2021-04-28 10:57 | NUR ---
Initial: Pt presented with c/o abdominal pain, diarrhea, and N/V following PO intake of a wild cucumber called simona and admit for GIB. Pt initially on a full liquid diet documented with 0-25% PO intake, though pt now on a clear liquid diet following EGD and colonoscopy documented with 100% PO intake. Unable to meet estimated nutrient needs on current diet order. Recommend diet advancement to regular as medically indicated. LBM 12, documented with diarrhea though small in size. Pt receiving routine bowel care and received GoLytely for GI prep. Will continue to follow closely and make recommendations as appropriate. Recommendations: 1) Advance to regular diet as medically indicated; CHO controlled diet not indicated given A1c 5.6% and BG levels well controlled throughout LOS 2) Bowel care per rx 3) Weekly scaled weights Addendum: 04/28/21 at [address] Amended: Links added.
[2021-04-28 11:00] VITALS: BP 172/80
[2021-04-28] MEDS: HYDROcodone/acetaminophen 5mg/325mg tablet PO PRN ×3 (11:36→22:57)
[2021-04-28] MEDS: labetalol 100mg tablet PO PRN (12:53)
[2021-04-28 13:50] LABS: HEMATOCRIT 30.3 % (42.0-52.0); HEMOGLOBIN 10.4 g/dl (14.0-17.9); MEAN CORPUSCULAR HEMOGLOBIN 30.4 PG (27.0-31.0); MEAN CORPUSCULAR HGB CONC 34.4 g/dL (33.0-36.5); MEAN CORPUSCULAR VOLUME 88.2 FL (78-98); MEAN PLATELET VOLUME 8.2 FL (7.4-10.4); PLATELET COUNT 145 X10'3 (140-440); RED BLOOD COUNT 3.44 X10'6 (4.70-6.10); RED CELL DISTRIBUTION WIDTH 15.3 % (11.5-14.5); WHITE BLOOD COUNT 7.8 X10'3 (4.5-11.0)
--- NOTE | 2021-04-28 17:45 | NUR ---
Report given to MOHSEN Mera
--- NOTE | 2021-04-28 17:55 | NUR ---
Pt transferred to room 4010B for house convenience.
--- NOTE | 2021-04-28 18:30 | NUR ---
Patient in room ORTHO 4010. I have received report from Samaria CONNOLLY and had the opportunity to ask questions and assume patient care.
[2021-04-28 18:45] VITALS: BP 155/69
--- NOTE | 2021-04-28 19:00 | NUR ---
his eyes are cloudy I asked granddaughter if patient had hx of cataracts and glaucoma, she said not to her knowledge. Addendum: 04/28/21 at 2221 by Holli Sandoval RN Amended: Links added.
[2021-04-28] MEDS: pantoprazole 40mg Tablet.DR PO SCH (20:32)
[2021-04-28 22:00] VITALS: BP 159/70
[2021-04-28] MEDS ORDERED: simethicone 80mg chew tab PO PRN (22:25)
[2021-04-29] MEDS: HYDROcodone/acetaminophen 5mg/325mg tablet PO PRN (03:19)
[2021-04-29 05:56] LABS: BASOPHILS % (AUTO) 0.4 % (0-1); EOSINOPHILS % (AUTO) 0.7 % (0-6); HEMATOCRIT 29.1 % (42.0-52.0); HEMOGLOBIN 9.8 g/dl (14.0-17.9); LYMPHOCYTES # (AUTO) 1.5 X10'3 (1.1-4.8); LYMPHOCYTES % (AUTO) 21.3 % (21-51); MEAN CORPUSCULAR HEMOGLOBIN 30.1 PG (27.0-31.0); MEAN CORPUSCULAR HGB CONC 33.6 g/dL (33.0-36.5); MEAN CORPUSCULAR VOLUME 89.7 FL (78-98); MEAN PLATELET VOLUME 8.1 FL (7.4-10.4); MONOCYTES # (AUTO) 0.8 X10'3 (0-0.9); MONOCYTES % (AUTO) 11.4 % (2-12); NEUTROPHILS # (AUTO) 4.6 X10'3 (1.8-7.7); NEUTROPHILS % (AUTO) 66.2 % (42-75); PLATELET COUNT 142 X10'3 (140-440); RED BLOOD COUNT 3.24 X10'6 (4.70-6.10); RED CELL DISTRIBUTION WIDTH 15.4 % (11.5-14.5); WHITE BLOOD COUNT 6.9 X10'3 (4.5-11.0)
[2021-04-29 05:58] LABS: PARTIAL THROMBOPLASTIN TIME 30 SECONDS (22-32)
[2021-04-29 06:00] VITALS: BP 149/70
--- NOTE | 2021-04-29 06:25 | NUR ---
Problems reprioritized. Patient report given, questions answered & plan of care reviewed with Catalina CONNOLLY.
[2021-04-29 06:27] LABS: ALANINE AMINOTRANSFERASE 18 U/L (12-78); ALBUMIN 2.2 G/DL (3.4-5.0); ALBUMIN/GLOBULIN RATIO 0.8 (1.1-1.5); ALKALINE PHOSPHATASE 61 IU/L (46-116); ANION GAP 7 (8-16); ASPARTATE AMINO TRANSFERASE 20 U/L (10-37); BILIRUBIN,TOTAL 0.4 MG/DL (0.1-1.0); BLOOD UREA NITROGEN 8 MG/DL (7-18); BUN/CREATININE RATIO 10.1 (5.4-32.0); CALCIUM 7.6 MG/DL (8.5-10.1); CHLORIDE 111 MMOL/L (99-107); CREATININE 0.79 MG/DL (0.60-1.10); GLUCOSE 94 MG/DL (70-104); PHOSPHORUS 4.1 MG/DL (2.3-4.5); POTASSIUM 3.1 MMOL/L (3.5-5.1); SODIUM 145 MMOL/L (135-145); TOTAL CARBON DIOXIDE 26.7 MMOL/L (24-32); eGFR > 90 ML/MIN
--- NOTE | 2021-04-29 06:35 | NUR ---
Patient in room ORTHO 4010. I have received report from MOHSEN De La Garza and had the opportunity to ask questions and assume patient care.
[2021-04-29 07:09] LABS: ANISOCYTOSIS 1+; PLATELET ESTIMATE DECREASED; TOTAL CELLS COUNTED 100
[2021-04-29 07:10] LABS: LARGE PLATELETS FEW
[2021-04-29] MEDS: pantoprazole 40mg Tablet.DR PO SCH ×2 (07:58→20:12)
[2021-04-29] MEDS: lactobacillus rhamnosus 10,000 MMU CELLS/CAPSULE PO SCH ×2 (07:58→20:12)
[2021-04-29] MEDS: ciprofloxacin 250mg tablet PO SCH ×2 (07:58→20:12)
[2021-04-29] MEDS: metroNIDAZOLE 500mg tablet PO SCH ×3 (07:59→16:35)
[2021-04-29] MEDS: potassium Cl 20 mEq SR tablet PO PRN ×3 (07:59→16:35)
[2021-04-29] MEDS: K, MAG and/or Phos replacement - Verify level? MC SCH (08:07)
[2021-04-29 10:00] VITALS: BP 160/69
--- NOTE | 2021-04-29 16:44 | NUR ---
page Sent MESSAGE: [id number] Regarding 4010b Arpit Juarez- BP 161/64, HR 70.
[2021-04-29] MEDS ORDERED: amLODIPine 5mg tablet PO ONE (17:25)
[2021-04-29] MEDS ORDERED: potassium Cl 20 mEq SR tablet PO PRN ×2 (17:30)
[2021-04-29] MEDS ORDERED: potassium Cl 40MEQ/1/2NS 520ml 520 ML IV PRN (17:30)
[2021-04-29] MEDS ORDERED: magnesium Cl slow-release 64mg tablet PO PRN (17:30)
[2021-04-29] MEDS ORDERED: magnesium 4gm in 100ml NS 100 ML IV PRN (17:30)
[2021-04-29 18:00] VITALS: BP 161/74
--- NOTE | 2021-04-29 18:20 | NUR ---
Patient in room ORTHO 4010. I have received report from Catalina CONNOLLY and had the opportunity to ask questions and assume patient care.
--- NOTE | 2021-04-29 18:35 | NUR ---
Problems reprioritized. Patient report given, kaylee phipps questions answered & plan of care reviewed with .
--- NOTE | 2021-04-29 19:10 | NUR ---
I called pt's granddaughter Veronique, and she was able to answer the contrast questions; so I filled out the consent for CT scan with contrast for am study. I faxed the copy to CT and placed on chart. Veronique then called her granddad and explained why he was having CT scan in the am and how he needed to drink the prep tonight and in am.
[2021-04-29] MEDS: K and/or MAG REPLACEMENT MC SCH (20:00)
--- NOTE | 2021-04-29 20:00 | NUR ---
I have not seen pt's urine or his stools, but he is able to communicate to me that he is having stool when he voids and he is up ad devin to the bathroom. Addendum: 04/30/21 at 0124 by Holli Sandoval RN Amended: Links added.
[2021-04-29] MEDS: diatr meglu/diatrizoate 30ml oral sol.-(3 dose) bottle PO SCH (20:12)
[2021-04-29] MEDS: labetalol 100mg tablet PO PRN (21:53)
[2021-04-29 22:00] VITALS: BP 177/62
[2021-04-30 02:00] VITALS: BP 125/61
--- NOTE | 2021-04-30 05:20 | NUR ---
Attempted to place new IV for his CT scan this am, I tried to place a 20gauge and was unsuccessfully in the left arm and Ester CONNOLLY was unable to place one in the right arm. Will have day shift attempt one when they come on.
[2021-04-30 05:43] LABS: BASOPHILS % (AUTO) 0.4 % (0-1); EOSINOPHILS # (AUTO) 0.1 X10'3 (0-0.9); EOSINOPHILS % (AUTO) 0.9 % (0-6); LYMPHOCYTES # (AUTO) 1.7 X10'3 (1.1-4.8); LYMPHOCYTES % (AUTO) 23.3 % (21-51); MEAN CORPUSCULAR HEMOGLOBIN 29.9 PG (27.0-31.0); MEAN CORPUSCULAR HGB CONC 33.5 g/dL (33.0-36.5); MEAN CORPUSCULAR VOLUME 89.4 FL (78-98); MEAN PLATELET VOLUME 7.8 FL (7.4-10.4); MONOCYTES # (AUTO) 0.9 X10'3 (0-0.9); MONOCYTES % (AUTO) 12.8 % (2-12); NEUTROPHILS # (AUTO) 4.6 X10'3 (1.8-7.7); NEUTROPHILS % (AUTO) 62.6 % (42-75); PLATELET COUNT 156 X10'3 (140-440); RED BLOOD COUNT 3.35 X10'6 (4.70-6.10); RED CELL DISTRIBUTION WIDTH 15.5 % (11.5-14.5); WHITE BLOOD COUNT 7.4 X10'3 (4.5-11.0)
[2021-04-30 06:00] VITALS: BP 151/84
[2021-04-30 06:03] LABS: PARTIAL THROMBOPLASTIN TIME 29 SECONDS (22-32)
[2021-04-30 06:08] LABS: TOTAL CELLS COUNTED 100
[2021-04-30 06:09] LABS: LARGE PLATELETS FEW
--- NOTE | 2021-04-30 06:14 | NUR ---
Patient in room ORTHO 4010. I have received report from Holli CONNOLLY and had the opportunity to ask questions and assume patient care.
[2021-04-30 06:15] LABS: ALANINE AMINOTRANSFERASE 17 U/L (12-78); ALBUMIN 2.3 G/DL (3.4-5.0); ALBUMIN/GLOBULIN RATIO 0.8 (1.1-1.5); ALKALINE PHOSPHATASE 61 IU/L (46-116); ANION GAP 8 (8-16); ASPARTATE AMINO TRANSFERASE 21 U/L (10-37); BILIRUBIN,TOTAL 0.5 MG/DL (0.1-1.0); CALCIUM 7.6 MG/DL (8.5-10.1); CHLORIDE 111 MMOL/L (99-107); CREATININE 0.85 MG/DL (0.60-1.10); GLUCOSE 96 MG/DL (70-104); POTASSIUM 3.4 MMOL/L (3.5-5.1); SODIUM 147 MMOL/L (135-145); TOTAL CARBON DIOXIDE 28.5 MMOL/L (24-32); TOTAL PROTEIN 5.3 G/DL (6.4-8.2); eGFR 89 ML/MIN
[2021-04-30 06:28] LABS: BLOOD UREA NITROGEN 10 MG/DL (7-18); BUN/CREATININE RATIO 11.8 (5.4-32.0)
[2021-04-30] MEDS: ciprofloxacin 250mg tablet PO SCH (07:53)
[2021-04-30] MEDS: lactobacillus rhamnosus 10,000 MMU CELLS/CAPSULE PO SCH (07:53)
[2021-04-30] MEDS: pantoprazole 40mg Tablet.DR PO SCH (07:53)
[2021-04-30] MEDS: diatr meglu/diatrizoate 30ml oral sol.-(3 dose) bottle PO SCH ×2 (07:53→10:02)
[2021-04-30] MEDS: metroNIDAZOLE 500mg tablet PO SCH ×2 (07:55→13:12)
[2021-04-30] MEDS ORDERED: amLODIPine 5mg tablet PO SCH (08:00)
[2021-04-30] MEDS: K and/or MAG REPLACEMENT MC SCH (08:00)
[2021-04-30] MEDS: K, MAG and/or Phos replacement - Verify level? MC SCH (08:00)
[2021-04-30] MEDS: potassium Cl 20 mEq SR tablet PO PRN ×2 (09:21→13:12)
[2021-04-30 09:31] LABS: PLATELET ESTIMATE NORMAL
[2021-04-30 10:00] VITALS: BP 162/64
[2021-04-30] MEDS ORDERED: iohexol 300mg/ml 100ml inj. ONE (10:01)
[2021-04-30] MEDS ORDERED: NOR5T PO (13:34)
[2021-04-30] MEDS ORDERED: SIME80TA14 PO (13:34)
[2021-04-30] MEDS ORDERED: PANT40TA54 PO (13:34)
[2021-04-30] MEDS ORDERED: LACT1CAP26 PO (13:34)
[2021-04-30] MEDS ORDERED: METR500T PO (13:34)
[2021-04-30] MEDS ORDERED: HYDR-3964 PO (13:34)
[2021-04-30] MEDS ORDERED: CIPR-202 PO (13:34)
[2021-04-30] MEDS ORDERED: POLY119P2 PO (13:37)
--- NOTE | 2021-04-30 14:22 | NUR ---
Pt was taken down to lobby escorted by aide and granddaughter. All pt discharge was gone over with granddaughter and pt. All pt belongings were sent with the pt along with discharge paper work
== END 2021-04-30 14:22 | disposition home or self-care (01) | DRG 871 ==
LOC: ER 07:16 → ED HOLD 14:40 → ICU 2S 17:49 → SUR 3N 04-27 17:59 → ORTHO 4S 04-28 17:55
PROVIDERS: ADMIT Internal Medicine Critical Care Medicine; ATTEND Internal Medicine Critical Care Medicine
PROC: B4201ZZ Computerized Tomography (CT Scan) of Abdominal Aorta using Low Osmolar Contrast (ICD-10-PCS; 2021-04-24)
PROC: B4241ZZ Computerized Tomography (CT Scan) of Superior Mesenteric Artery using Low Osmolar Contrast (ICD-10-PCS; 2021-04-24)
PROC: B4281ZZ Computerized Tomography (CT Scan) of Bilateral Renal Arteries using Low Osmolar Contrast (ICD-10-PCS; 2021-04-24)
PROC: B42C1ZZ Computerized Tomography (CT Scan) of Pelvic Arteries using Low Osmolar Contrast (ICD-10-PCS; 2021-04-24)
PROC: B4211ZZ Computerized Tomography (CT Scan) of Celiac Artery using Low Osmolar Contrast (ICD-10-PCS; 2021-04-24)
PROC: 06HY33Z Insertion of Infusion Device into Lower Vein, Percutaneous Approach (ICD-10-PCS; 2021-04-24)
PROC: 30233N1 Transfusion of Nonautologous Red Blood Cells into Peripheral Vein, Percutaneous Approach (ICD-10-PCS; principal; 2021-04-25)
PROC: 0DB68ZX Excision of Stomach, Via Natural or Artificial Opening Endoscopic, Diagnostic (ICD-10-PCS; 2021-04-27)
PROC: 0DBN8ZX Excision of Sigmoid Colon, Via Natural or Artificial Opening Endoscopic, Diagnostic (ICD-10-PCS; 2021-04-27)
PROC: BW211ZZ Computerized Tomography (CT Scan) of Abdomen and Pelvis using Low Osmolar Contrast (ICD-10-PCS; 2021-04-30)
DX: A41.9 Sepsis, unspecified organism (principal); J96.90 Respiratory failure, unspecified, unspecified whether with hypoxia or hypercapnia; K20.91 Esophagitis, unspecified with bleeding; N17.9 Acute kidney failure, unspecified; A09 Infectious gastroenteritis and colitis, unspecified; E87.2 Acidosis; K52.1 Toxic gastroenteritis and colitis; D62 Acute posthemorrhagic anemia; K92.1 Melena; K63.3 Ulcer of intestine; R65.20 Severe sepsis without septic shock; K29.70 Gastritis, unspecified, without bleeding; E83.51 Hypocalcemia; K31.89 Other diseases of stomach and duodenum; K29.80 Duodenitis without bleeding; E11.9 Type 2 diabetes mellitus without complications; E83.39 Other disorders of phosphorus metabolism; E87.6 Hypokalemia; R59.9 Enlarged lymph nodes, unspecified; I10 Essential (primary) hypertension; K64.8 Other hemorrhoids; Z79.899 Other long term (current) drug therapy
CPT/HCPCS: 36415; 36430; 36556; 36600; 43239; 45380; 71045; 74174; 74176; 74177; 80053; 81001; 82140; 82150; 82550; 82803; 82948; 83036; 83605; 83690; 83735; 83880; 84100; 84145; 84439; 84443; 84484; 85007; 85008; 85018; 85025; 85027; 85379; 85384; 85610; 85730; 86885; 86900; 86901; 86920; 87040; 87045; 87046; 87081; 87324; 87449; 88305; 88342; 93005; 94660; 94760; 97116; 97161; 97530; 99152; 99153; 99291; C9113; G0378; J1644; J2250; J2270; J2543; J3010; J3370; J3480; J3490; J7030; J7040; P9016; Q9963; Q9967